=== PATIENT | female | born 1985 | race African-American/Black ===

== ENCOUNTER 2017-01-19 01:31 | Emergency (ER) | payer OTHER ==
[~2017-01-19] VITALS: Ht 167.6 cm; Wt 74.8 kg
[2017-01-19 01:35] VITALS: BP 139/87
--- NOTE | 2017-01-19 01:40 | NUR ---
Patient to bed 03.
[2017-01-19] MEDS ORDERED: KETOROLAC 60 MG/2 ML VIAL IM ONE (01:45)
[2017-01-19] MEDS ORDERED: cefTRIAXone 1,000 MG in LIDOCAINE 1% ED 2.1 ML IM ONE (01:45)
--- NOTE | 2017-01-19 02:16 | NUR ---
PATIENT PRESENTS TO ED WITH UTI AND DYSURIA . PT STATES SHE HAS PAINFUL URINATION AND FEELS BURNING, PRESSURE, AND THROBBING CONSTANTLY, HOWEVER THE PAIN INCREASES ON URINATION . DENIES N/V/D; SKIN IS PINK/WARM/DRY; AAOX4 WITH EVEN AND STEADY GAIT; LUNGS CLEAR BL; HR EVEN AND REGULAR; PT DENIES ANY FEVER, CP, SOB, OR COUGH AT THIS TIME; PATIENT STATES PAIN OF 9/10 AT THIS TIME; VSS; PATIENT POSITIONED FOR COMFORT; HOB ELEVATED; BEDRAILS UP X2; BED DOWN. ER MD MADE AWARE OF PT STATUS.
[2017-01-19 02:28] VITALS: BP 139/87
--- NOTE | 2017-01-19 02:28 | NUR ---
PER DR. LEE, Patient discharged with v/s stable. Written and verbal after care instructions given and explained. Patient alert, oriented and verbalized understanding of instructions. Ambulatory with steady gait. All questions addressed prior to discharge. ID band removed. Patient advised to follow up with PMD. Rx of PYRIDIUM AND MACROBID 100MG PO BID given. Patient educated on indication of medication including possible reaction and side effects. Opportunity to ask questions provided and answered. D/C NOTE ONLY.
== END 2017-01-19 02:28 | disposition home or self-care (01) ==
LOC: MED 01:31
DX: N39.0 Urinary tract infection, site not specified (principal); R03.0 Elevated blood-pressure reading, without diagnosis of hypertension
CPT/HCPCS: 81002; 81025; 96372; 99284; J0696; J1885; J2001